=== PATIENT | female | born 1995 | race Two or more races ===

== ENCOUNTER 2016-11-14 23:10 | Emergency (ER) | payer OTHER ==
[2016-11-14 23:34] VITALS: RESP 20
--- NOTE | 2016-11-14 23:50 | EDPHY ---
H & P Stated Complaint: uti symptoms, right flank pain HPI/ROS: HPI CHIEF COMPLAINT: Dysuria HISTORY OF PRESENT ILLNESS: This patient very pleasant 21-year-old female denies any significant medical or surgical history she presents to the emergency room with urinary frequency, urinary urgency and dysuria over the past 2-3 days. She developed some right-sided CVA pain this evening became concerned and came to the emergency room. She denies abdominal pain, nausea, vomiting or fever. patient denies vaginal discharge denies being . Past Medical History: No significant medical history Past Surgical History: no significant surgical history Social History: Denies daily use drugs alcohol tobacco products Family History: noncontributory ROS REVIEW OF SYSTEMS: A comprehensive 10 point review of systems is otherwise negative aside from elements mentioned in the history of present illness. Exam Constitutional triage nursing summary reviewed, vital signs reviewed, awake/ alert. Eyes normal conjunctivae and sclera, EOMI, PERRLA. HENT normal inspection, atraumatic, moist mucus membranes, no epistaxis, neck supple/ no meningismus, no raccoon eyes. Respiratory clear to auscultation bilaterally, normal breath sounds, no respiratory distress, no wheezing. Cardiovascular rate normal, regular rhythm, no murmur, no edema, distal pulses normal. Gastrointestinal soft, non-tender, no rebound, no guarding, normal bowel sounds, no distension, no pulsatile mass. Genitourinary very mild right CVA tenderness, no left CVA tenderness Musculoskeletal no midline vertebral tenderness, full range of motion, no calf swelling, no tenderness of extremities, no meningismus, good pulses, neurovascularly intact. Skin pink, warm, & dry, no rash, skin atraumatic. Neurologic awake, alert and oriented x 3, AAOx3, moves all 4 extremities equally, motor intact, sensory intact, CN II-XII intact, normal cerebellar, normal vision, normal speech. Psychiatric normal mood/affect. Heme/Lymph/Immune no lymphadenopathy. Differential Diagnosis: includes but is not limited to in a particular order, UTI, cystitis, pyelonephritis, kidney stone, Medical Decision Making: Patient had a urinalysis and test. She appears well here in the emergency room nontoxic no fever no acute distress abdomen is benign. Does have very mild right CVA tenderness do not feel the patient needs IV or labs at this time will check urinalysis and most likely treat for UTI. Re-evaluation: The patient's urinalysis does show that she has a nitrite positive UTI. She appears well nontoxic not septic afebrile no acute distress. Nitrite positive. Will give this patient a dose of Keflex and Pyridium. Patient be placed on Keflex and Pyridium outpatient. Source: Patient - Personal History LMP (Females 10-55): 1-7 Days Ago Current Tetanus Diphtheria and Acellular Pertussis (TDAP): Yes - Medical/Surgical History Hx Asthma: No Hx Chronic Respiratory Disease: No Hx Diabetes: No Hx Cardiac Disease: No Hx Renal Disease: No Hx Cirrhosis: No Hx Alcoholism: No Hx HIV/AIDS: No Hx Splenectomy or Spleen Trauma: No - Social History Smoking Status: Never smoked Constitutional: Initial Vital Signs Temperature (C) 37.8 C 11/14/16 23:32 Heart Rate 106 H 11/14/16 23:32 Respiratory Rate 20 11/14/16 23:32 Blood Pressure 140/85 H 11/14/16 23:32 O2 Sat (%) 94 11/14/16 23:32 O2 Delivery Mode Room Air Allergies/Adverse Reactions: No Known Allergies Allergy (Unverified 11/14/16 23:31) Home Medications: Medication Instructions Recorded Azo 11/14/16 Cephalexin [Keflex] 500 mg PO Q6H #28 cap 11/15/16 Ibuprofen [Motrin (*)] 800 mg PO Q6-8PRN #10 tab 11/15/16 Phenazopyridine HCl [Pyridium] 200 mg PO TID #6 tab 11/15/16 Medical Decision Making - Data Points Laboratory Results: 11/14/16 23:40 Urine Color DOMENICA Urine Appearance HAZY Urine pH 6.0 (5.0-7.5) Ur Specific [place] 1.005 (1.002-1.030) Urine Protein 2+ H (NEGATIVE) Urine Ketones TRACE H (NEGATIVE) Urine Blood 3+ H (NEGATIVE) Urine Nitrate POSITIVE H (NEGATIVE) Urine Bilirubin NEGATIVE (NEGATIVE) Urine Urobilinogen 4.0 H EU (0.2-1.0) Ur Leukocyte Esterase 2+ H (NEGATIVE) Urine RBC 50-182 H /hpf (0-3) Urine WBC 50-182 H /hpf (0-3) Ur Epithelial Cells TRACE /lpf (NONE-1+) Urine Bacteria 2+ H /hpf (NONE SEEN) Urine Glucose NEGATIVE (NEGATIVE) Departure - Departure Disposition: Home, Routine, Self-Care Clinical Impression: Urinary tract infection Qualifiers: Urinary tract infection type: acute cystitis Hematuria presence: with hematuria Qualifier Code: (N30.01) Acute cystitis with hematuria Condition: Good Instructions: Urinary Tract Infection in Women (ED) Additional Instructions: 1. Drink Lots of fluids stay well-hydrated 2. Return to the emergency room if develops any worsening symptoms questions or concerns. 3. Take antibiotic as prescribed. 4.If you develop nausea/vomiting/fever, worsening pain return to the emergency room. Referrals: NONE *PRIMARY CARE P,. [Primary Care Provider] - As per Instructions Prescriptions: Cephalexin [Keflex] 500 mg PO Q6H #28 cap Ibuprofen [Motrin (*)] 800 mg PO Q6-8PRN #10 tab Phenazopyridine HCl [Pyridium] 200 mg PO TID #6 tab
[2016-11-14 23:59] LABS: COLOR AMBER; LEUKOCYTE ESTERASE,URINE 2+ (NEGATIVE); NITRITE,URINE POSITIVE (NEGATIVE)
[2016-11-15 00:09] LABS: BACTERIA 2+ /hpf (NONE SEEN); RBC,URINE 50-182 /hpf (0-3); WBC,URINE 50-182 /hpf (0-3)
[2016-11-15] MEDS ORDERED: CEPHALEXIN 500 MG CAP PO ONE ×2 (00:19→00:21)
[2016-11-15] MEDS ORDERED: CEPHALEXIN 500MG PREPACK#4 BTL TAKEHOME ONE (00:21)
[2016-11-15 01:04] VITALS: BP 125/83; PULSE 93; TEMP 98.4; O2SAT 95
== END 2016-11-15 01:04 | disposition home or self-care (01) ==
DX: N30.01 Acute cystitis with hematuria (principal); B96.89 Other specified bacterial agents as the cause of diseases classified elsewhere